=== PATIENT | male | born 1970 | race Hispanic/Latino ===

== ENCOUNTER 2017-04-04 09:10 | Day surgery (SDC) | payer OTHER ==
[2017-04-04] MEDS ORDERED: NACL 0.9% 1000 ML 1,000 ML ONE (09:40)
[2017-04-04] MEDS ORDERED: SUBLIMAZE IV PRN (10:15)
--- NOTE | 2017-04-04 10:16 | Anesthesia Day of Surgery ---
Anesthesia Day of Surgery - Day of Surgery Patient Examined: Yes Patient H&P Reviewed: Yes Patient is NPO: Yes
[2017-04-04] MEDS ORDERED: ZOFRAN IV PRN ×2 (10:17→14:00)
--- NOTE | 2017-04-04 10:17 | Anesthesia Consultation ---
Anesthesia Consult and Med Hx Date of service: 04/04/17 - Airway Anesthetic Teeth Evaluation: Good ROM Head & Neck: Adequate Mental/Hyoid Distance: Adequate Mallampati Class: Class II Intubation Access Assessment: Probably Good - Pulmonary Exam CTA: Yes - Cardiac Exam Cardiac Exam: RRR - Pre-Operative Health Status ASA Pre-Surgery Classification: ASA1 Proposed Anesthetic Plan: General Nerve Block: IS - Pulmonary Hx Smoking: Yes (STOPPED SMOKLESS TOBACCO X 10 YRS) Hx Sleep Apnea: No (ADDIS PRE SCREEN LOW RISK) - Cardiovascular System Hx Hypertension: No - Central Nervous System Hx Seizures: No CVA: No - Gastrointestinal Hx Gastroesophageal Reflux Disease: Yes - Endocrine Hx Renal Disease: No Hx Liver Disease: No Hx Non-Insulin Dependent Diabetes: No - Other Systems Hx Cancer: No Hx Obesity: No
[2017-04-04] MEDS ORDERED: ADRENALIN ONE (10:31)
[2017-04-04] MEDS ORDERED: DECADRON ONE (10:47)
[2017-04-04] MEDS ORDERED: MARCAINE-EPI/PF 0.5%-1:200,000 INFILTRATI ONE ×2 (10:47→10:51)
[2017-04-04] MEDS ORDERED: VERSED IV NR (11:00)
[2017-04-04] MEDS ORDERED: TRANSDERM-SCOP TD NR (11:00)
[2017-04-04] MEDS ORDERED: PEPCID PO NR (11:00)
[2017-04-04] MEDS ORDERED: ANCEF/STERILE WATER 2 GM/20 ML IV NR (11:00)
[2017-04-04] MEDS ORDERED: NACL 0.9% 1000 ML 1,000 ML IV SCH (11:00)
[2017-04-04] MEDS ORDERED: QUELICIN ONE (11:20)
[2017-04-04] MEDS ORDERED: DIPRIVAN 10 MG/ML IV ONE (11:20)
[2017-04-04] MEDS ORDERED: SUBLIMAZE ONE (11:20)
[2017-04-04] MEDS ORDERED: XYLOCAINE MPF 2% ONE (11:20)
[2017-04-04] MEDS ORDERED: NACL 0.9% IR ONE ×2 (12:08)
[2017-04-04] MEDS ORDERED: ADRENALIN IV ONE (12:08)
--- NOTE | 2017-04-04 13:07 | Short Stay Summary ---
Short Stay Documentation Date of service: 04/04/17 Narrative H&P: 46yo male right hand dominant with persistent progressivley worsening right shoulder pain which has failed to improve with nonoperative treatment. The pain limits his day to day activity - History H&P: obtained from office Past Medical History: No medical history Past Surgical History: No surgical history Social history: no significant social history - Allergies and Medications Current Medications: Allergies acetaminophen [From Tylenol] Allergy (Verified 03/29/17 14:54) Vomiting ibuprofen [From Motrin] Allergy (Verified 03/29/17 14:54) Vomiting Home Medications Medication Instructions Recorded Confirmed Last Taken Type traMADol [Ultram] 50 mg PO TID 03/29/17 04/04/17 04/04/17 07:00 History Active Medications Fentanyl (Sublimaze) 100 mcg IV PRN PRN PRN Reason: Sedation Last Admin: 04/04/17 11:09 Dose: 100 mcg Hydromorphone HCl (Dilaudid) 0.5 mg IV Q10MIN PRN PRN Reason: Pain , Severe (7-10) Stop: 04/04/17 15:00 Midazolam HCl (Versed) 2 mg IV PREOP NR Stop: 04/04/17 23:59 Last Admin: 04/04/17 10:50 Dose: 2 mg - Physical exam General appearance: no acute distress Integumentary: no rash HEENT: Atraumatic Lungs: Normal air movement Breasts: deferred Gastrointestinal: normal Male Genitourinary: deferred Female Genitourinary: deferred Rectal Exam: deferred Extremities: no ischemia, pulses intact, pulses symmetrical, No edema, normal temperature, normal color, Full ROM Neurological: Normal gait, Normal speech, Strength at 5/5 X4 ext, Normal tone, Sensation intact, Cranial nerves 3-12 NL, Reflexes 2+ - Brief post op/procedure progress note Date of procedure: 04/04/17 Pre-op diagnosis: persistent right shoulder pain, acromioclavicular joint arthritis, rotator Post-op diagnosis: other (persistent right shoulder pain, acromioclavicular joint arthritis, partial rotator cuff tear, extensive subacromial bursitis,) Procedure: right shoulder arthroscopy, subacromial decompression, distal clavicle excision , debriedment of extensive subacromial bursitis, debriedment of partial rotator cuff tear, Anesthesia: GETA Findings: as above Surgeon: JOSE GUADALUPE PROCTOR Estimated blood loss: minimal Pathology: none Condition: stable - Hospital course Hospital course: no perioperative complications - Disposition Condition at discharge: Good Disposition: DC-01 TO HOME OR SELFCARE Short Stay Discharge Plan Follow up with: PRIMARY CARE, [Primary Care Provider] - 7 Days
[2017-04-04] MEDS ORDERED: ZOFRAN ONE (13:22)
[2017-04-04] MEDS: DILAUDID IV PRN ×2 (13:35→14:25)
[2017-04-04] MEDS ORDERED: REGLAN IV PRN (13:36)
[2017-04-04] MEDS ORDERED: REGLAN ONE (13:38)
--- NOTE | 2017-04-04 14:57 | Post Anesthesia Evaluation ---
- Post Anesthesia Evaluation Patient Participated: Yes Airway Patent: Yes Stable Respiratory Function: Yes Nausea/Vomiting: No Temp > 96.8F: Yes Pain Manageable: Yes Adequeate Hydration: Yes Anesthesia Complications: No Block Receding Appropriately: Not Applicable Patient on Ventilator: No
[2017-04-04 16:15] VITALS: BP 127/83
--- NOTE | 2017-04-04 17:53 | Operative Report ---
PREOPERATIVE DIAGNOSES: Persistent right shoulder pain, acromioclavicular joint arthritic changes, partial rotator cuff tear. POSTOPERATIVE DIAGNOSES: Persistent right shoulder pain, advanced acromioclavicular joint arthritic changes caused significant impingement upon the rotator cuff, partial thickness bursal side of the rotator cuff tear involving the supraspinatus tendon, extensive subacromial bursitis. OPERATIVE PROCEDURE: Right shoulder arthroscopy, subacromial decompression, distal clavicle excision, debridement of extensive subacromial bursitis, debridement of partial thickness rotator cuff tear. SURGEON: Madi Moe MD. HORTICULTURE INSTRUCTOR: Jamila ____, certified hyperbaric technician. ANESTHESIA: General plus an interscalene block to the operative right upper extremity. DVT PROPHYLAXIS: Open toe, thigh high compression stockings and SCD pumps to bilateral lower extremities. OPERATIVE INSTRUMENTATION: None. OPERATIVE COMPLICATIONS: None. OPERATIVE SPECIMENS: None. ESTIMATED BLOOD LOSS: Minimal. INDICATIONS: This is a 46-year-old male who has had persistent progressively worsening right shoulder pain for several months' time status post an injury at work. The pain, failed to improve despite extensive nonoperative treatment. An MRI scan was performed, which was positive for advanced acromioclavicular joint arthritic changes causing severe impingement upon the rotator cuff. There was a partial thickness bursal side of the rotator cuff tear. The patient's MRI findings and diagnosis were discussed at length again after failing to improve with nonoperative treatment, the patient opted to proceed with operative intervention. This would entail a right shoulder arthroscopy, subacromial decompression, distal clavicle excision, possible rotator cuff repair and surgery as indicated. The risk of which were discussed to include but not exclusive of infection, blood loss, nerve damage, loss of range of motion and persistent pain, the patient understood all his questions were answered. He wished to proceed with operative intervention. OPERATIVE PROCEDURE: The patient was seen in the preoperative holding room area at which point informed consent was reviewed and appropriate right upper extremity was identified and then marked. Anesthesia then performed an interscalene block in the right upper extremity. After confirmation of adequate anesthesia, the right extremity, the patient was then brought back to the operating room and placed supine on the standard operating room table with the beach chair positioner already in place. Anesthesia then performed a general anesthesia, endotracheal tube was inserted. After confirmation of appropriate general anesthesia checked and endotracheal tube, we then measured all bony prominences were well padded. There were no wrinkles in the compression stockings on bilateral lower extremities and SCD positive at the bilateral lower extremities. The beachchair padding was placed at the posterior aspect of bilateral lower extremities placed in slight flexion of the hips and knees to make sure the popliteal fossa was free and clear. The patient was then sat in beach chair position using the beach chair positioner, which was already in place and the head was secured in nice neutral position. The well left arm was good in that position, the patient side with the well arm james. The right upper extremity was then examined under anesthesia. The patient was seen to have full range of motion without any evidence of instability. Following examination under anesthesia, the right upper extremity was then prepped and draped in the usual sterile fashion. After prepping and draping, a timeout was called. Right upper extremity was identified which again had been marked in the preoperative area. We began the procedure by first making standard posterior portal with a #11 blade. Once this was established, a cannula trocar was inserted into the intra-articular aspect of the glenohumeral joint. This went without difficulty or damage to articular cartilage was then placed the camera in medially placed anterior aspect of the shoulder was established anterior portal by first inserting Spinal. Arthroscopic visualization was confirmed to be in appropriate position, a 15 blade was then established an anterior portal was portal established and blunt trocar was inserted 104 psi followed by an arthroscopic probe. We began our diagnostic arthroscopy in the anterior aspect of the shoulder joint with the patient was seen to have a normal subscapularis tendon. There is a normal anterior, superior, posterior labrum was also seen to be stable when probed. There was mild articular cartilage wear the central aspect of the glenoid, but otherwise there is normal articular cartilage without any gross evidence of osteoarthritic changes. There is normal variant without a Hill-Sachs lesion of his negative drive-through sign. No gross evidence of instability. Inspection of the bicep tendon showed to be intact. Next, the shoulder is normal relation. There were no articular-sided rotator cuff tears. Arthroscopic pump was then turned off, straight full suction. The glenohumeral joint and the arthroscopic camera was removed. The glenohumeral joint and placed in the subacromial space. Once in the subacromial space there is severe extensive subacromial bursitis and a third incision made on the lateral aspect of the shoulder in line with distal clavicle well away from axillary nerve. Once the incision was made, the dense subacromial bursitis was debrided using 4.0 shaver and hemostasis was achieved with the Arthrocare ablation wand. Once completed, ____ was placed through a range of motion. We saw there was severe impingement of the rotator cuff undersurface of the acromion and the distal clavicle. The soft tissue was then removed from the surface acromion using Arthrocare ablation wand. Using the 4.0 hooded bur tractor mechanic apprentice subacromial decompression in standard fashion with inferior superior anterior make sure to leave any residual anterior hook. Once this was completed, an additional distal clavicle was also seen to be arthritic and debrided using the 4.0 100 power bur approximately 6-8 mm of the distal clavicle. We then turned our attention to the bursal side rotator cuff where it was found there was a partial thickness tear involving the supraspinatus tendon grafting well, less than 50% within the tendon. This partial tear was gently debrided and once completed, arthroscopic pump was turned off to make sure there was good hemostasis. Once this was confirmed, 3 postoperative subacromial space using arthroscopic cannula. Following this, all the arthroscopic instrumentation was removed. The 3 portal sites were closed with 3-0 nylon in simple fashion. Adaptic, 4 x 4s, ABD, paper tape, small abduction single nodule Cryo/Cuff blanket was applied. The patient ____ supine position, was awakened from general anesthesia without complications, taken to the recovery room in stable condition. Standard postop orders were written. JOB# [id number] VS/NTS
== END 2017-04-04 17:20 | disposition home or self-care (01) ==
LOC: OR 09:10 → EDSEX 14:30 → OR 17:20
PROVIDERS: ATTEND Orthopaedic Surgery
DX: S46.011A Strain of muscle(s) and tendon(s) of the rotator cuff of right shoulder, initial encounter (principal); M75.51 Bursitis of right shoulder; K21.9 Gastro-esophageal reflux disease without esophagitis; Z88.5 Allergy status to narcotic agent; Z88.8 Allergy status to other drugs, medicaments and biological substances; Z91.041 Radiographic dye allergy status; Z87.891 Personal history of nicotine dependence
CPT/HCPCS: 29823; A4217; J0171; J0330; J0690; J1100; J1170; J2250; J2405; J2704; J2765; J3010; J7030; L1830

== ENCOUNTER 2017-11-28 06:14 | Day surgery (SDC) | payer OTHER ==
[~2017-11-28 06:14] MED LIST: ANCEF/STERILE WATER 2 GM/20 ML IV NR
[2017-11-28] MEDS ORDERED: NACL BACTERIOSTATIC INFILTRATI ONE (06:22)
[2017-11-28] MEDS ORDERED: ADRENALIN ONE ×3 (06:42→08:01)
[2017-11-28] MEDS ORDERED: NACL 0.9% 1000 ML 1,000 ML ONE (07:07)
[2017-11-28] MEDS ORDERED: DILAUDID IV PRN (07:08)
[2017-11-28] MEDS ORDERED: SUBLIMAZE IV NR (07:08)
[2017-11-28] MEDS ORDERED: PERCOCET 5/325 PO PRN (07:08)
--- NOTE | 2017-11-28 07:10 | Anesthesia Day of Surgery ---
Anesthesia Day of Surgery - Day of Surgery Patient Examined: Yes Patient H&P Reviewed: Yes Patient is NPO: Yes
--- NOTE | 2017-11-28 07:10 | Anesthesia Consultation ---
Anesthesia Consult and Med Hx Date of service: 11/28/17 - Airway Anesthetic Teeth Evaluation: Good, Caps ROM Head & Neck: Adequate Mental/Hyoid Distance: Adequate Mallampati Class: Class I Intubation Access Assessment: Good - Pulmonary Exam CTA: Yes - Cardiac Exam Cardiac Exam: RRR - Pre-Operative Health Status ASA Pre-Surgery Classification: ASA2 Proposed Anesthetic Plan: General Nerve Block: IS - Pulmonary Hx Smoking: Yes (STOPPED SMOKLESS TOBACCO X 10 YRS) Hx Sleep Apnea: No (ADDIS PRE SCREEN LOW RISK) - Cardiovascular System Hx Hypertension: No - Central Nervous System Hx Seizures: No CVA: No - Gastrointestinal Hx Gastroesophageal Reflux Disease: Yes - Endocrine Hx Renal Disease: No Hx Liver Disease: No Hx Non-Insulin Dependent Diabetes: No - Other Systems Hx Cancer: No Hx Obesity: No - Additional Comments Anesthesia Medical History Comments: Informed consent obtained
[2017-11-28] MEDS ORDERED: MARCAINE 0.5% 30 ML INFILTRATI ONE (07:12)
[2017-11-28] MEDS ORDERED: PEPCID IV ONE (07:12)
[2017-11-28] MEDS ORDERED: XYLOCAINE 1% 20 mL ONE (07:13)
[2017-11-28] MEDS ORDERED: DECADRON ONE ×2 (07:13→09:06)
[2017-11-28] MEDS ORDERED: QUELICIN ONE (07:26)
[2017-11-28] MEDS ORDERED: ZEMURON IV ONE (07:26)
[2017-11-28] MEDS ORDERED: XYLOCAINE MPF 2% ONE (07:26)
[2017-11-28] MEDS ORDERED: SUBLIMAZE ONE (07:27)
[2017-11-28] MEDS ORDERED: DIPRIVAN 10 MG/ML IV ONE (07:27)
[2017-11-28] MEDS ORDERED: PEPCID IV NR (08:00)
[2017-11-28] MEDS ORDERED: NACL 0.9% 1000 ML 1,000 ML IV SCH (08:00)
[2017-11-28] MEDS ORDERED: VERSED IV NR (08:00)
[2017-11-28] MEDS ORDERED: ADRENALIN IV ONE (08:24)
[2017-11-28] MEDS ORDERED: ePHEDrine SULFATE ONE (08:25)
[2017-11-28] MEDS ORDERED: ZOFRAN ONE (09:06)
--- NOTE | 2017-11-28 09:13 | Short Stay Summary ---
Short Stay Documentation Date of service: 11/28/17 - History H&P: obtained from office - Allergies and Medications Current Medications: Allergies No Known Allergies Allergy (Verified 11/14/17 14:06) Home Medications Medication Instructions Recorded Confirmed Last Taken Type traMADol [Ultram] 50 mg PO PRN PRN 03/29/17 11/28/17 11/27/17 History Active Medications Cefazolin Sodium (Ancef/Sterile Water 2 Gm/20 Ml) 2 gm IV PREOP NR Stop: 11/28/17 23:59 Famotidine (Pepcid) 20 mg IV PREOP NR Stop: 11/28/17 10:00 Last Admin: 11/28/17 07:10 Dose: 20 mg Fentanyl (Sublimaze) 100 mcg IV ONCE NR Stop: 11/28/17 10:00 Last Admin: 11/28/17 07:20 Dose: 50 mcg Hydromorphone HCl (Dilaudid) 0.5 mg IV Q10MIN PRN PRN Reason: Pain , Severe (7-10) Stop: 11/28/17 15:00 Sodium Chloride (Nacl 0.9% 1000 Ml) 1,000 mls @ 100 mls/hr IV DIRECT GERALDO Last Admin: 11/28/17 07:10 Dose: 100 mls/hr Midazolam HCl (Versed) 2 mg IV PREOP NR Stop: 11/28/17 23:59 Last Admin: 11/28/17 07:17 Dose: 2 mg Oxycodone/Acetaminophen (Percocet 5/325) 1 tab PO ONCE PRN PRN Reason: Pain, Moderate (4-6) Stop: 11/28/17 10:00 - Brief post op/procedure progress note Date of procedure: 11/28/17 Pre-op diagnosis: persistent right shoulder pain with loss of range of motion, adhesive capsul Post-op diagnosis: same Procedure: right shoulder arthroscopy lysis of adhensions manipulation under anesthesia Anesthesia: GETA Findings: as above Surgeon: JOSE GUADALUPE PROCTOR Maori Physiotherapist: COLT HUGGINS III Estimated blood loss: minimal Pathology: none Condition: stable - Hospital course Hospital course: no perioperative complications - Disposition Condition at discharge: Good Disposition: DC-01 TO HOME OR SELFCARE Short Stay Discharge Plan Follow up with: TYRELL JOHNSON MD [Primary Care Provider] - 7 Days
--- NOTE | 2017-11-28 10:03 | Post Anesthesia Evaluation ---
- Post Anesthesia Evaluation Patient Participated: Yes Airway Patent: Yes Stable Respiratory Function: Yes Nausea/Vomiting: No Temp > 96.8F: Yes Pain Manageable: Yes Adequeate Hydration: Yes Anesthesia Complications: No Other Comments: Preop IS block. providing analgesia
--- NOTE | 2017-11-28 10:51 | Operative Report ---
PREOPERATIVE DIAGNOSES: Persistent right shoulder pain with loss of range of motion/adhesive capsulitis, possible recurrent rotator cuff tear. POSTOPERATIVE DIAGNOSES: Persistent right shoulder pain with marked loss of range of motion/adhesive capsulitis, extensive scar tissue adhesions located diffusely throughout the glenohumeral as well as subacromial space with extensive subacromial bursitis. OPERATIVE PROCEDURE: Right shoulder arthroscopy, lysis of adhesions, manipulation under anesthesia, debridement of extensive subacromial bursitis. SURGEON: Madi Moe M.D. HEARING AID SPECIALIST: Renard Cheung MD. PREOPERATIVE ANTIBIOTICS: Ancef 2 grams IV within 1 hour of skin incision. DVT prophylaxis, open toe, thigh high compression stockings and SCD pumps to bilateral lower extremities. OPERATIVE COMPLICATIONS: None. OPERATIVE HISTORY AND PHYSICAL: This is a 47-year-old male who has had persistent progressive worsening right shoulder pain with severe loss of range of motion that is markedly limiting his normal activities of daily living, status post right shoulder arthroscopy approximately 6-7 months ago, the shoulder failed to improve despite extensive postoperative rehabilitation including formal physical therapy, home exercise program, ice, ____ with activity modifications. Following failure to improve with continued loss of his daily function, the patient opted to proceed with operative intervention. This would entail a right shoulder arthroscopy, lysis of adhesions, manipulation under anesthesia, possible revision rotator cuff repair and surgery as indicated. The risks of which were discussed to include but not exclusive of infection, blood loss, nerve damage, loss of range of motion and persistent pain. Again, the patient understood, all of his questions were answered. He wished to proceed with operative intervention. DESCRIPTION OF PROCEDURE: The patient was seen in the preoperative holding room area, at which point, informed consent was reviewed and appropriate right upper extremity was identified and marked. Following marking in the preoperative holding area, anesthesia then performed, an interscalene block of the right upper extremity. After confirmation of adequate analgesia on the right upper extremity, the patient was then brought back to the operating room and placed supine on a standard operating room table, at which point, general anesthesia was administered and endotracheal tube was inserted. After confirmation of adequate general anesthesia, checking for appropriate placement of endotracheal tube, we then made sure that all bony prominences were well padded that there are no wrinkles in the compression stockings on bilateral lower extremities. SCD pumps were applied to bilateral lower extremities. A pillow was placed beneath the posterior aspect of the thigh placed in slight flexion of the hips and knees making sure the popliteal fossa was free and clear. The patient was then sat up in the beach chair position using the beach chair position, which was already in place and his head was secured in nice neutral position. The well left arm was secured in a neutral position at the patient's side with the aid of the well arm james. The right upper extremity was then examined under anesthesia. The patient has severe loss of range of motion with forward flexion to only 160, abduction to 150, external rotation of 50 degrees, internal rotation of 40 degrees. Following examination under anesthesia, the right upper extremity was then prepped and draped in the usual sterile fashion. Prepping and draping, a timeout was called. Right upper extremity was identified which again had been marked in the preoperative holding area. We began our procedure by first making a standard posterior portal with #15 blade. Once the portal was established, a cannula with blunt trocar were inserted into the intra-articular aspect of the glenohumeral joint. This went without difficulty or damage to articular cartilage. Once in place, the arthroscopic camera was immediately placed in the anterior aspect of the shoulder joint, we established anterior portal by first inserting an 18 gauge spinal needle under direct arthroscopic visualization between the subscap and biceps tendons was confirmed to be in appropriate position. A 15 blade was then used to establish the anterior portal, once the portal was established, a blunt trocar was inserted to widen the portal site. Following an arthroscopic probe, we began our diagnostic arthroscopy in the anterior aspect of the shoulder joint. The patient had severe adhesions located diffusely throughout the glenohumeral joint, particularly in the anterior capsule. These were taken down meticulously using the arthroscopic shaver. Hemostasis was achieved with the Arthrocare ablation wand. Once completed, inspection of the anterior labrum should also be adhesed to the capsule, which was meticulously taken down. The superior labrum was also seen to be adhesed to the capsule as well. This was also taken down. The biceps tendon was seen to be intact. Next, the shoulder was normal relation. There was mild grade 1 articular cartilage off the central aspect of the glenoid. The anterior, superior, posterior labrum itself was seen to be intact and stable when probed. There are also significant severe adhesions located diffusely at the posterior aspect of the joint, which were debrided using 4.0 meniscal shaver. Hemostasis was achieved with Arthrocare ablation wand. The rotator cuff itself was seen to be intact and stable when probed. There was a normal bare area without Hill-Sachs lesion. Following this, arthroscopic pump was turned off to make sure there was good hemostasis. Once this was confirmed, the extraneous fluid was suctioned from the glenohumeral joint using arthroscopic cannula. Following this, all the arthroscopic instrumentation was removed and then placed in subacromial space. Once in the subacromial space, I saw there were severe adhesions here as well. A third incision was made in the lateral aspect of the shoulder in line with the distal clavicle well away from the axillary nerve. Once the incision was made, we debrided the extensive adhesions and scar tissues using 4.0 meniscal shaver. Hemostasis was achieved with the Arthrocare ablation wand. Once completed, the arthroscopic instrumentation was removed. Gentle manipulation under anesthesia was performed. Once completed, the patient was seen to have forward flexion to 180, abduction to 180, external rotation of 60 degrees, internal rotation of 60 degrees, ____ range of motion. Arthroscopic camera was then placed back in the subacromial space and the shoulder was ranged under direct arthroscopic visualization. It was felt the patient had full range of motion of the shoulder. There was no impingement of the rotator cuff upon the undersurface of the acromion or the distal clavicle. Once confirmed, arthroscopic pump was turned off to make sure there was good hemostasis. Once this was confirmed, the extraneous fluid was suctioned from the subacromial space using arthroscopic cannula. Following this, all arthroscopic instrumentation was removed. The 3 portal sites and closed with 3-0 nylon in simple fashion. Adaptic, 4 x 4, ABD, paper tape, small abduction sling, the [place] Cryo/Cuff blanket was applied. The patient was then awakened from general anesthesia without complications, taken to recovery room in stable condition. Standard postop orders were written. JOB# [id number] SARA/DEBBIE MACIAS
[2017-11-28] MEDS ORDERED: PERCOCET 5/325 PO NR (11:15)
[2017-11-28 11:55] VITALS: BP 116/65
== END 2017-11-28 11:24 | disposition home or self-care (01) ==
LOC: OR 06:14
PROVIDERS: ATTEND Orthopaedic Surgery
DX: M75.01 Adhesive capsulitis of right shoulder (principal); M75.51 Bursitis of right shoulder; K21.9 Gastro-esophageal reflux disease without esophagitis; Z87.891 Personal history of nicotine dependence
CPT/HCPCS: 29825; J0171; J0330; J0690; J1100; J2250; J2405; J2704; J3010; J7030